=== PATIENT | male | born 1990 | race Two or more races ===

== ENCOUNTER 2023-02-10 22:58 | Emergency (ER) | payer MEDICAID ==
[~2023-02-10] VITALS: Ht 175.3 cm; Wt 124.7 kg
[2023-02-10] MEDS ORDERED: ACETAMINOPHEN ES 500 MG TABLET PO ONE (23:30)
[2023-02-10] MEDS ORDERED: ACETAMINOPHEN ES 500 MG TABLET ONE (23:48)
[2023-02-10] MEDS ORDERED: TDAP [DIPH/PERTUSSIS/TET] 0.5 ML VIAL IM ONE (23:48)
[2023-02-11] MEDS ORDERED: TDAP [DIPH/PERTUSSIS/TET] 0.5 ML VIAL IM ONE
[2023-02-11] MEDS ORDERED: oxyCODONE/APAP (5/325 MG) 1 UDTAB TABLET PO ONE (03:30)
[2023-02-11] MEDS ORDERED: oxyCODONE/APAP (5/325 MG) 1 UDTAB TABLET ONE (03:33)
[2023-02-11] MEDS ORDERED: IBUP-1955 PO ×2 (07:37→10:35)
[2023-02-11 07:55] VITALS: BP 125/75; TEMP 97.8; O2SAT 97
== END 2023-02-11 07:57 | disposition home or self-care (01) ==
LOC: ER 23:03
DX: S00.81XA Abrasion of other part of head, initial encounter (principal); R51.9 Headache, unspecified; Y04.8XXA Assault by other bodily force, initial encounter; Y93.89 Activity, other specified; Y92.89 Other specified places as the place of occurrence of the external cause; Y99.8 Other external cause status
CPT/HCPCS: 70450-TC; 70486-TC; 90715

== ENCOUNTER 2024-09-21 14:25 | Emergency (ER) | payer MEDICAID ==
[~2024-09-21] VITALS: Ht 172.7 cm; Wt 93.0 kg
[~2024-09-21 14:25] MED LIST: IBUP-1955 PO
[2024-09-21 14:32] VITALS: BP 136/75; TEMP 98.4
[2024-09-21 14:42] VITALS: O2SAT 99
== END 2024-09-21 14:44 | disposition home or self-care (01) ==
LOC: ER 14:33
DX: Z00.00 Encounter for general adult medical examination without abnormal findings (principal); Z79.899 Other long term (current) drug therapy